=== PATIENT | female | born 1980 | race African-American/Black ===

== ENCOUNTER 2019-06-15 16:04 | Emergency (ER) | payer OTHER ==
[~2019-06-15] VITALS: Ht 157.5 cm; Wt 75.8 kg
[2019-06-15 16:29] LABS: ABSOLUTE NEUTROPHILS 2.5 thou/uL (1.4-8.2); BASOPHILS 1.3 % (0.0-2.0); HEMATOCRIT 38.8 % (37.0-47.0); HEMOGLOBIN 12.7 gm/dL (12.0-15.0); MCH 28.8 pg (26.0-34.0); MCHC 32.8 g/dL (28.0-37.0); MONOCYTES 6.9 % (1.0-8.0); PLATELET COUNT 379 thou/uL (150-400); POLYS 40.8 % (36.0-66.0); RDW 13.1 % (10.5-14.5); WBC 6.2 thou/uL (4.0-11.0)
[2019-06-15] MEDS ORDERED: LOTENSIN HCT 11 EAC1 PO (16:29)
[2019-06-15] MEDS ORDERED: AMBIEN 10 MG TA10 MG PO (16:30)
[2019-06-15 16:37] LABS: ANION GAP 10 mmol/L (7-16); BUN 9 mg/dL (7-18); CALCIUM 9.4 mg/dL (8.5-10.1); CHLORIDE 100 mmol/L (98-107); CO2 29 mmol/L (21-32); CREATININE 0.8 mg/dL (0.6-1.0); GLUCOSE 108 mg/dL (74-106); SODIUM 139 mmol/L (136-145)
[2019-06-15 16:39] LABS: POTASSIUM 2.9 mmol/L (3.5-5.1)
[2019-06-15 16:47] LABS: ALBUMIN 3.9 g/dL (3.4-5.0); SGOT 18 U/L (15-37); SGPT 25 U/L (30-65); TOTAL BILIRUBIN 0.2 mg/dL (<0.1-1.0); TROPONIN-I <0.06 ng/mL (<0.06)
[2019-06-15] MEDS ORDERED: POTASSIUM20 PO (18:57)
[2019-06-15 19:05] VITALS: BP 108/76
--- NOTE | 2019-06-16 08:09 | EKG ---
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
== END 2019-06-15 19:05 | disposition home or self-care (01) ==
LOC: ER 16:04
PROVIDERS: Emergency Medicine
DX: R07.9 Chest pain, unspecified (principal); E87.6 Hypokalemia; I10 Essential (primary) hypertension